=== PATIENT | male | born 1950 | race Caucasian/White ===

== ENCOUNTER 2016-10-12 19:28 | Inpatient (IN) | payer MEDICARE ==
[~2016-10-12] VITALS: Ht 180.3 cm; Wt 63.1 kg
[2016-10-12 21:45] LABS: HEMOGLOBIN 9.2 gm/dl (14.0-17.5); RED BLOOD COUNT 3.78 M/UL (4.20-5.50); WHITE BLOOD COUNT 6.5 K/UL (4.5-11.0)
[2016-10-12 22:05] LABS: BUN/CREATININE RATIO 32 (0-10)
[2016-10-13] MEDS ORDERED: MULTIVITAMINS1 EAC1 PO (01:49)
[2016-10-13] MEDS ORDERED: VITAMIN C 500500 MG PO (01:50)
[2016-10-13] MEDS ORDERED: IRON325 M1 PO (01:50)
[2016-10-13] MEDS ORDERED: VITAMIN D50000 UNIT PO (01:51)
[2016-10-13 07:12] LABS: HEMOGLOBIN 8.3 gm/dl (14.0-17.5); RED BLOOD COUNT 3.44 M/UL (4.20-5.50)
[2016-10-13 07:13] LABS: WHITE BLOOD COUNT 9.6 K/UL (4.5-11.0)
[2016-10-14 05:52] LABS: HEMOGLOBIN 7.3 gm/dl (14.0-17.5)
[2016-10-14 05:56] LABS: RED BLOOD COUNT 3.05 M/UL (4.20-5.50); WHITE BLOOD COUNT 12.1 K/UL (4.5-11.0)
[2016-10-14 08:38] LABS: BUN/CREATININE RATIO 25 (0-10)
[2016-10-15 05:12] LABS: WHITE BLOOD COUNT 14.8 K/UL (4.5-11.0)
[2016-10-15 05:20] LABS: HEMOGLOBIN 11.8 gm/dl (14.0-17.5); RED BLOOD COUNT 4.5 M/UL (4.20-5.50)
[2016-10-15 05:22] LABS: BUN/CREATININE RATIO 28 (0-10)
[2016-10-16 05:57] LABS: HEMOGLOBIN 9.3 gm/dl (14.0-17.5); RED BLOOD COUNT 3.64 M/UL (4.20-5.50); WHITE BLOOD COUNT 12.6 K/UL (4.5-11.0)
[2016-10-16 06:20] LABS: BUN/CREATININE RATIO 16 (0-10)
[2016-10-17 06:30] LABS: HEMOGLOBIN 8.7 gm/dl (14.0-17.5); RED BLOOD COUNT 3.38 M/UL (4.20-5.50); WHITE BLOOD COUNT 11.2 K/UL (4.5-11.0)
[2016-10-17 10:27] LABS: BUN/CREATININE RATIO 19 (0-10)
[2016-10-18 05:50] LABS: HEMOGLOBIN 9.2 gm/dl (14.0-17.5); RED BLOOD COUNT 3.62 M/UL (4.20-5.50); WHITE BLOOD COUNT 9.2 K/UL (4.5-11.0)
[2016-10-18 06:12] LABS: BUN/CREATININE RATIO 17 (0-10)
[2016-10-22 05:19] LABS: BUN/CREATININE RATIO 10 (0-10)
[2016-10-24 04:55] LABS: HEMOGLOBIN 8.8 gm/dl (14.0-17.5); RED BLOOD COUNT 3.49 M/UL (4.20-5.50); WHITE BLOOD COUNT 5.8 K/UL (4.5-11.0)
[2016-10-24 05:16] LABS: BUN/CREATININE RATIO 17 (0-10)
[2016-10-26 04:45] LABS: HEMOGLOBIN 8.8 gm/dl (14.0-17.5); RED BLOOD COUNT 3.51 M/UL (4.20-5.50); WHITE BLOOD COUNT 5.4 K/UL (4.5-11.0)
[2016-10-26 05:08] LABS: BUN/CREATININE RATIO 19 (0-10)
[2016-10-29 06:41] LABS: RED BLOOD COUNT 3.57 M/UL (4.20-5.50); WHITE BLOOD COUNT 5.6 K/UL (4.5-11.0)
[2016-10-29 07:04] LABS: BUN/CREATININE RATIO 21 (0-10)
[2016-11-01] MEDS ORDERED: AUGMENTIN TAB875 MG PO (13:00)
[2016-11-01] MEDS ORDERED: PROTONIX40 MG PO (13:00)
[2016-11-01] MEDS ORDERED: SENOKOT-S TABL1 EACH PO (13:01)
[2016-11-01] MEDS ORDERED: NORCO 5-325 TA1 EACH PO (13:01)
[2016-11-01] MEDS ORDERED: DULCOLAX10 MG PR (13:03)
== END 2016-11-01 17:00 | disposition home health service (06) | DRG 853 ==
LOC: ER1 19:28 → ZEROF 23:44 → M/S 23:44
PROVIDERS: Internal Medicine; Internal Medicine Infectious Disease; Specialist/Technologist Athletic Trainer; Surgery; ADMIT Internal Medicine
PROC: 30233N1 Transfusion of Nonautologous Red Blood Cells into Peripheral Vein, Percutaneous Approach (ICD-10-PCS; 2016-10-14)
PROC: 0JB90ZZ Excision of Buttock Subcutaneous Tissue and Fascia, Open Approach (ICD-10-PCS; principal; 2016-10-15 14:30)
PROC: 0DJ08ZZ Inspection of Upper Intestinal Tract, Via Natural or Artificial Opening Endoscopic (ICD-10-PCS; 2016-10-18)
PROC: 0DJD8ZZ Inspection of Lower Intestinal Tract, Via Natural or Artificial Opening Endoscopic (ICD-10-PCS; 2016-10-20)
PROC: 3E0234Z Introduction of Serum, Toxoid and Vaccine into Muscle, Percutaneous Approach (ICD-10-PCS; 2016-11-01)
DX: A41.9 Sepsis, unspecified organism (principal); L89.324 Pressure ulcer of left buttock, stage 4; L89.153 Pressure ulcer of sacral region, stage 3; N10 Acute pyelonephritis; N30.00 Acute cystitis without hematuria; G82.20 Paraplegia, unspecified; I96 Gangrene, not elsewhere classified; B96.4 Proteus (mirabilis) (morganii) as the cause of diseases classified elsewhere; L89.212 Pressure ulcer of right hip, stage 2; D64.9 Anemia, unspecified; Z23 Encounter for immunization; E61.1 Iron deficiency; T14.8 Other injury of unspecified body region; W34.00XS Accidental discharge from unspecified firearms or gun, sequela; N31.9 Neuromuscular dysfunction of bladder, unspecified; H91.3 Deaf nonspeaking, not elsewhere classified; Z85.09 Personal history of malignant neoplasm of other digestive organs; B95.1 Streptococcus, group B, as the cause of diseases classified elsewhere; Z51.89 Encounter for other specified aftercare; Z86.39 Personal history of other endocrine, nutritional and metabolic disease; Z80.0 Family history of malignant neoplasm of digestive organs; Z80.9 Family history of malignant neoplasm, unspecified; R19.5 Other fecal abnormalities; Z92.21 Personal history of antineoplastic chemotherapy; Z92.3 Personal history of irradiation; R73.02 Impaired glucose tolerance (oral); K56.41 Fecal impaction; Z79.899 Other long term (current) drug therapy
CPT/HCPCS: 36415; 71010; 74000; 80048; 80053; 80202; 81001; 82272; 82607; 82728; 82746; 83036; 83540; 83550; 83605; 84132; 84443; 85014; 85018; 85025; 85027; 86140; 86850; 86900; 86901; 86920; 87040; 87070; 87077; 87086; 87186; 87205; 93005; 96361; 96374; 99285; G0008; J0696; J1756; J2250; J2270; J2543; J3010; J3370; J7030; J7040; J7050; J7070; J7120; P9016; Q2039